=== PATIENT | female | born 1995 | race Caucasian/White ===

== ENCOUNTER 2024-11-05 17:56 | Emergency (ER) | payer SELFPAY ==
[2024-11-05 18:12] VITALS: BP 123/77; PULSE 76; RESP 18; TEMP 36.8; O2SAT 100
--- NOTE | 2024-11-05 19:40 | PC.NURSE ---
NA for Ultrasound call
--- NOTE | 2024-11-05 20:03 | PC.NURSE ---
NA when called from waiting room
== END 2024-11-05 19:40 | disposition left against medical advice (07) ==
DX: O20.9 Hemorrhage in early pregnancy, unspecified (principal)
CPT/HCPCS: 99199